=== PATIENT | male | born 1985 | race Caucasian/White ===

== ENCOUNTER → 2018-12-07 | Outpatient (CLI) | payer OTHER ==
--- NOTE | 2018-12-07 14:34 | RADIOLOGY IMAGING REPORT ---
FACILITY: [facility] - [place] PATIENT NAME: Clyde Cid : 1985 MR: [id number] V: [id number] EXAM DATE: ORDERING PHYSICIAN: EDWIN DURANT TECHNOLOGIST: Location: [facility] [place] Patient: Clyde Cid : 1985 Visit/Account:[id number] Date of Sevice: 12/07/2018 EXAMINATION: Scrotal ultrasound with duplex Doppler evaluation. HISTORY: Right testicular pain and swelling. COMPARISON: None. FINDINGS: Normal size and echogenicity of both testicles. No focal intratesticular mass. The right testis meka ures 4.5 x 2.5 x 2.7 cm; the left testis 4.4 x 2.3 x 2.7 cm. Both testicles demonstrate normal and sy mmetric vascularity with Doppler evaluation. The body and tail of the right epididymis appear mildly heterogeneous with asymmetrically increased v ascularity noted with color Doppler, suspicious for epididymitis. The right epididymal head is unrema rkable and measures 1.2 cm. Unremarkable left epididymis, with normal vascularity. The left epididyma l head measures 1.1 cm. Small right-sided hydrocele. No varicocele. IMPRESSION: 1. The body and tail of the right epididymis appear mildly heterogeneous and hypervascular, suspiciou s for epididymitis. 2. Normal ultrasound appearance of both testicles with normal vascularity. 3. Small right hydrocele. Report Dictated By: Blaze Corcoran MD at 12/07/2018 2:21 PM Report E-Signed By: Blaze Corcoran MD at 12/07/2018 2:27 PM WSN:[id number]
== END ==
LOC: US 13:06
PROVIDERS: ATTEND Physician Assistant
DX: N43.3 Hydrocele, unspecified (principal); N50.89 Other specified disorders of the male genital organs
CPT/HCPCS: 76870